=== PATIENT | male | born 1980 | race Caucasian/White ===

== ENCOUNTER 2019-10-18 22:23 | Emergency (ER) | payer OTHER, SELFPAY ==
[2019-10-18 22:31] VITALS: BP 171/104; PULSE 71; RESP 22; TEMP 36.5; O2SAT 100; BMI 28.2
--- NOTE | 2019-10-18 22:31 | ED_ITS ---
HPI - General Adult General Chief complaint: Abdominal Pain Stated complaint: states severe stomach pain Time Seen by Provider: 10/18/19 22:29 Source: patient Mode of arrival: Ambulatory Limitations: no limitations History of Present Illness HPI narrative: 39-year-old male here for evaluation of right upper quadrant abdominal pain. Patient states that was a fairly sudden onset a couple hours ago. Has had some nausea no vomiting. No change in bowel habits. No urinary symptoms. States that he was sitting on the couch eating cheese stick when the symptoms started. Has had some symptoms like this over the past several months however they have never been this bad. No fevers. Has not had it evaluated prior to this. Related Data Previous Rx's Medication Instructions Recorded hydrocodone-acetaminophen [[place]] 1 tab PO Q4-6H PRN #7 tab 10/19/19 ondansetron 4 mg PO Q6H PRN #10 tab 10/19/19 Review of Systems Constitutional Constitutional: Denies fever(s) Cardiovascular Cardiovascular: Denies chest pain and Denies dyspnea Respiratory Respiratory: Denies dyspnea Gastrointestinal Gastrointestinal: Reports abdominal pain, Denies change in stool character, Reports nausea and Denies vomiting Genitourinary Genitourinary: Denies dysuria Musculoskeletal Musculoskeletal: Denies myalgias and Denies arthralgias Integumentary/Breasts Skin/Breast: Denies lesions and Denies rash Neurologic Neurologic: Denies behavioral changes Psychiatric Psychiatric: Denies behavioral changes Hematologic/Lymphatic Hematologic/Lymphatic: Denies easy bleeding and Denies easy bruising Allergic/Immunologic Allergic/Immunologic: Denies urticaria Patient History Medical History Healthy adult (Acute) Social History Smoking Status: Never smoker Exam Initial Vital Signs Initial Vital Signs: Vital Signs Temperature 97.7 F 10/18/19 22:31 Pulse Rate 71 10/18/19 22:31 Respiratory Rate 22 10/18/19 22:31 Blood Pressure 171/104 H 10/18/19 22:31 Pulse Oximetry 100 10/18/19 22:31 Const General: cooperative and No comfortable (Uncomfortable) Limitations: mental status not altered HENMT Head: normal to inspection and normocephalic Resp Effort & Inspection: normal respiratory effort Auscultation: clear to auscultation bilaterally Cardio Rate: regular rate GI Inspection: non-distended Palpation: soft, No firm and tender (Right upper quadrant without rebound or guarding) Back/Spine/Pelvis Back: No CVA tenderness Skin Lesions: no lesions Rashes: no rashes Neuro General: alert and awake Cognition: normal cognition Speech: speech normal Extrem General: normal to inspection and capillary refill normal Psych Appearance: grossly normal and well kempt Course Orders Ordered: ED Orders 10/18/19 22:30 Complete Blood Count AUTO DIFF Stat Comprehensive Metabolic Panel Stat Lipase Stat 10/18/19 22:34 EKG-12 Lead Stat Discontinued Medications Hydrocodone Bitart/Acetaminophen (Vicodin 5/325 Prepack) 1 bottle MISC SEEINSTR ONE Stop: 10/19/19 00:03 Last Admin: 10/19/19 00:10 Dose: 1 bottle Documented by: AL Hydromorphone HCl (Dilaudid) 1 mg IV NOW ONE Stop: 10/18/19 23:20 Last Admin: 10/18/19 23:28 Dose: 1 mg Documented by: AL Ketorolac Tromethamine (Toradol) 30 mg IV NOW ONE Stop: 10/18/19 22:33 Last Admin: 10/18/19 22:51 Dose: 30 mg Documented by: AL Ondansetron HCl (Zofran Odt Prepack) 1 bottle MISC SEEINSTR ONE Stop: 10/19/19 00:03 Last Admin: 10/19/19 00:10 Dose: 1 bottle Documented by: AL Vital Signs Vital signs: Vital Signs - 8 hr 10/18/19 22:31 10/18/19 23:48 10/19/19 00:22 Temperature 97.7 F Pulse Rate 71 66 58 L Respiratory Rate 22 10 L 16 Blood Pressure 171/104 H 156/58 H Blood Pressure [Left Arm] 145/92 H Pulse Oximetry 100 97 97 Medical Decision Making Lab Data Lab results reviewed: Yes I reviewed the patient's lab results. Result diagrams: 10/18/19 22:30 10/18/19 22:30 Labs: Lab Results 10/18/19 10/18/19 Range/Units 22:30 22:30 WBC 9.9 (4.5-11.0) X10^3/uL RBC 5.33 (4.5-5.9) X10^6/uL Hgb 16.6 (13.5-17.5) g/dL Hct 47.6 (41-53) % MCV 89.4 (80-100) fL MCH 31.2 (26-34) PG MCHC 34.9 (30-36) % RDW 12.6 (11.6-14.8) % Plt Count 330 (150-400) X10^3/uL Neut % (Auto) 53.9 (50-75) % Lymph % (Auto) 31.5 (25-40) % [place] % (Auto) 10.8 (3-14) % Eos % (Auto) 2.7 (2-4) % Baso % (Auto) 1.1 (0-2) % Neut # (Auto) 5300 (9426-9627) /uL Lymph # (Auto) 3100 (8030-0323) /uL [place] # (Auto) 1100 H (0-900) /uL Eos # (Auto) 300 (0-450) /uL Baso # (Auto) 100 (0-100) /uL Sodium 137 (137-145) mmol/L Potassium 3.6 (3.4-5.1) mmol/L Chloride 100 (98-107) mmol/L Carbon Dioxide 23 (22-32) mmol/L BUN 20 (9-20) mg/dL Creatinine 1.00 (0.66-1.25) mg/dL Estimated GFR > 60.0 (>60) mL/min BUN/Creatinine Ratio 20.0 (6-22) Glucose 98 (70-100) mg/dL Calcium 9.9 (8.4-10.2) mg/dL Total Bilirubin 0.8 (0.2-1.3) mg/dL AST 34 (17-59) IU/L ALT 45 (<50) IU/L Alkaline Phosphatase 100 (38-126) U/L Total Protein 8.5 H (6.3-8.2) g/dL Albumin 5.0 (3.5-5.0) g/dL Globulin 3.5 (1.7-4.1) g/dL Albumin/Globulin Ratio 1.4 (1.0-2.8) Lipase 78 (23-300) U/L ECG Data Attestation: I personally reviewed and interpreted this ECG as follows: Prior ECG tracings: not available for review Interpretation: Sinus rhythm Ventricular rate is 63 Normal axis Normal QRS Normal QTC No ST T wave changes MDM Narrative Medical decision making narrative: Patient has a physical exam that is consistent with biliary colic. Is afebrile. Does not have a white count. Does not have an elevation in LFTs or lipase. Pain is controlled with medications. We did discuss this is most likely gallbladder pathology. Informed him that he should talk with his primary doctor on Sunday about obtaining a outpatient ultrasound. Patient was given return precautions and follow-up instructions. He expressed understanding and agreement plan. Discharge Plan Departure Patient Disposition: Home Clinical Impression: Biliary colic Abdominal pain Qualifiers: Abdominal location: right upper quadrant Qualified Code(s): R10.11 - Right upper quadrant pain Discharge Date/Time: 10/19/19 00:25 Instructions: Gallstones (Alternative Therapy) Activity Restrictions/Additional Instructions: I do have suspicion that your symptoms today were caused by your gallbladder. I recommend that on Sunday you contact your primary provider about scheduling a ultrasound as an outpatient. I recommend you eat a bland diet. Take the medications as needed as directed. Return to the emergency department for any new symptoms to include fevers, vomiting, pain that is not controlled with the medications her any other concerning symptoms Prescriptions: New hydrocodone-acetaminophen [Anderson] 5-325 mg tablet 1 tab PO Q4-6H PRN (Reason: pain) Qty: 7 RF: 0 ondansetron 4 mg tablet,disintegrating 4 mg PO Q6H PRN (Reason: nausea and vomiting) Qty: 10 RF: 0
[2019-10-18 22:48] LABS: Add Manual Diff / Slide Review NO; Basophils Absolute Auto 100 /uL (0-100); Basophils Percent Auto 1.1 % (0-2); Eosinophils Absolute Auto 300 /uL (0-450); Eosinophils Percent Auto 2.7 % (2-4); Hematocrit 47.6 % (41-53); Hemoglobin 16.6 g/dL (13.5-17.5); Lymphocytes Absolute Auto 3100 /uL (1100-4500); Lymphocytes Percent Auto 31.5 % (25-40); Mean Corpuscular HGB Conc 34.9 % (30-36); Mean Corpuscular Hemoglobin 31.2 PG (26-34); Mean Corpuscular Volume 89.4 fL (80-100); Monocytes Absolute Auto 1100 /uL (0-900); Monocytes Percent Auto 10.8 % (3-14); Neutrophils Absolute Auto 5300 /uL (1500-7000); Neutrophils Percent Auto 53.9 % (50-75); Platelet Count 330 X10^3/uL (150-400); Red Blood Cell Count 5.33 X10^6/uL (4.5-5.9); Red Cell Distribution Width 12.6 % (11.6-14.8); White Blood Cell Count 9.9 X10^3/uL (4.5-11.0)
[2019-10-18] MEDS: KETOROLAC 60 MG/2 ML VIAL 30 MG IV (22:51)
[2019-10-18 22:57] LABS: Alanine Aminotransferase 45 IU/L (<50); Albumin Globulin Ratio 1.4 (1.0-2.8); Alkaline Phosphatase 100 U/L (38-126); Aspartate Aminotransferase 34 IU/L (17-59); Bilirubin Total 0.8 mg/dL (0.2-1.3); Blood Urea Nitrogen 20 mg/dL (9-20); Calcium 9.9 mg/dL (8.4-10.2); Carbon Dioxide 23 mmol/L (22-32); Chloride 100 mmol/L (98-107); Estimated Glomerular Filt Rate > 60.0 mL/min (>60); Globulin 3.5 g/dL (1.7-4.1); Glucose 98 mg/dL (70-100); HEMOLYSIS 26 (0-50); Lipase 78 U/L (23-300); Potassium 3.6 mmol/L (3.4-5.1); Sodium 137 mmol/L (137-145); Total Protein 8.5 g/dL (6.3-8.2)
[2019-10-18] MEDS: HYDROMORPHONE 1 MG INJ IV (23:28)
[2019-10-18 23:48] VITALS: BP 145/92; PULSE 66; RESP 10; O2SAT 97
[2019-10-19] MEDS: ONDANSETRON 4 MG ODT PREPACK 1 BOTTLE MISC (00:10)
[2019-10-19] MEDS: HYDROCODONE/ACET 5/325 PREPACK 1 BOTTLE MISC (00:10)
[2019-10-19 00:22] VITALS: BP 156/58; PULSE 58; RESP 16; O2SAT 97
== END 2019-10-19 00:25 | disposition home or self-care (01) ==
PROVIDERS: Emergency Provider Emergency Medicine
DX: K80.50 Calculus of bile duct without cholangitis or cholecystitis without obstruction (principal); R10.11 Right upper quadrant pain
CPT/HCPCS: 36415; 80053; 83690; 85025; 93005; 96374; 96375; 99284; J1170; J1885

== ENCOUNTER 2019-10-19 16:20 | Observation (INO) | payer OTHER, SELFPAY ==
[2019-10-19] VITALS (15 sets, daily range): BP systolic 99–141; BP diastolic 61–91; PULSE 80–95; RESP 13–22; TEMP 36.2–39; O2SAT 94–100; BMI 28.2
--- NOTE | 2019-10-19 | PATH_ITS ---
[facility] Accession Number: [id number] . 01 Material submitted: . gallbladder - GALLBLADDER . 01 Clinical history: . STOMACH PAIN IS GETTING WORSE . 02 Diagnosis: Gallbladder, Cholecystectomy: Chronic active cholecystitis with cholelithiasis. No evidence of neoplasm. MRV 10/22/2019 1219 Local . 02 Electronically signed: . Demetrius Kent MD, PhD, Pathologist NPI- [id number] . 01 Gross description: . Received in formalin, labeled gallbladder, is an opened gallbladder (length-7.8 cm, diameter-3.5 cm) with gagnon-thomas smooth shiny serosa and a patent cystic duct. No lymph nodes are identified. The lumen contains brown solid soft material and one brown-green gritty calculus (1.8 x 1.2 x 0.8 cm) with a clear crystalline cut surface. The mucosa is brown, smooth and flat. The wall is up to 0.1 cm thick. No nodules, masses or lesions are identified. Section code: (A1) cystic duct resection margin and two serial sections from the body; (A2) two longitudinal sections from the fundus. ([id number]) /MRV 10/21/2019 1439 Local . 02 Pathologist provided ICD-10: K80.60, K81.2 . 02 CPT . 138376 Performed at: 01 [facility] [address], [place], [place] [address] MD Phillip Hooper MD Phone: [phone] Performed at: 02 [facility] [address] [place], [place] [id number] MD Kelsea Arias MD Phone: [phone]
--- NOTE | 2019-10-19 16:53 | DI.US.S_ITS ---
PROCEDURE: US ABDOMEN LIMITED INDICATIONS: RUQ PAIN TECHNIQUE: Real-time focused scanning was performed of the abdomen, with image documentation. COMPARISON: None. FINDINGS: The liver is normal in size. Echotexture of the liver is symmetric when compared to the right kidney. No focal liver lesions are identified. No intrahepatic biliary dilatation is evident. The common bile duct is measuring within the upper limits of normal for size at approximately 7 mm. The gallbladder is normal in size, but demonstrates gallbladder wall thickening (6 mm) with pericholecystic fluid. Gallstones are present within the gallbladder. The patient was tender over the gallbladder. The pancreas is unremarkable. The included portions of the right kidney are unremarkable without hydronephrosis. The abdominal aorta and inferior vena cava were not imaged. IMPRESSION: Cholelithiasis with findings suggestive of wall inflammation and dilatation of the common bile duct is suggestive of acute cholecystitis and clinical correlation is recommended. Dictated by: Abraham Burgess M.D. on 10/19/2019 at 16:41 Approved by: Abraham Burgess M.D. on 10/19/2019 at 16:44
[2019-10-19 16:59] LABS: Add Manual Diff / Slide Review NO; Basophils Absolute Auto 100 /uL (0-100); Basophils Percent Auto 0.6 % (0-2); Eosinophils Absolute Auto 100 /uL (0-450); Eosinophils Percent Auto 0.6 % (2-4); Hematocrit 51.2 % (41-53); Lymphocytes Absolute Auto 1200 /uL (1100-4500); Lymphocytes Percent Auto 7.4 % (25-40); Mean Corpuscular HGB Conc 35.1 % (30-36); Mean Corpuscular Hemoglobin 31.3 PG (26-34); Mean Corpuscular Volume 89.2 fL (80-100); Monocytes Absolute Auto 1200 /uL (0-900); Monocytes Percent Auto 7.3 % (3-14); Neutrophils Absolute Auto 13300 /uL (1500-7000); Neutrophils Percent Auto 84.1 % (50-75); Platelet Count 333 X10^3/uL (150-400); Red Blood Cell Count 5.74 X10^6/uL (4.5-5.9); Red Cell Distribution Width 13.1 % (11.6-14.8); White Blood Cell Count 15.8 X10^3/uL (4.5-11.0)
[2019-10-19] MEDS: ONDANSETRON 4 MG/2 ML INJ IV (17:06)
[2019-10-19] MEDS: SODIUM CHLORIDE 0.9% 1,000 ML 1000 ML IV (17:07)
[2019-10-19] MEDS: MORPHINE 4 MG/ML INJ IV ×2 (17:07→18:06)
[2019-10-19 17:08] LABS: Alanine Aminotransferase 44 IU/L (<50); Albumin Globulin Ratio 1.3 (1.0-2.8); Alkaline Phosphatase 87 U/L (38-126); Amylase 68 U/L (30-110); Aspartate Aminotransferase 31 IU/L (17-59); Bilirubin Total 1.3 mg/dL (0.2-1.3); Blood Urea Nitrogen 11 mg/dL (9-20); Carbon Dioxide 25 mmol/L (22-32); Chloride 99 mmol/L (98-107); Estimated Glomerular Filt Rate > 60.0 mL/min (>60); Glucose 117 mg/dL (70-100); HEMOLYSIS 27 (0-50); Lipase 39 U/L (23-300); Potassium 3.6 mmol/L (3.4-5.1); Sodium 136 mmol/L (137-145)
--- NOTE | 2019-10-19 17:50 | ED.ABDPAIN ---
HPI - Abdominal Pain <DONNA Jo - Last Filed: 10/19/19 19:53> General Chief Complaint: Abdominal Pain Stated Complaint: stomach pain is getting worse Time Seen by Provider: 10/19/19 16:53 Source: patient and family Mode of arrival: Ambulatory Limitations: no limitations History of Present Illness HPI narrative: Male nonsmoker who presents with a chief complaint of continued right upper quadrant pain. He states that he had sudden pain last night his right upper quadrant while eating a cheese stick. He notes that he has had symptoms like this for the past several months, they have never been this bad and has always self resolved. No dysuria urgency or frequency. Last bowel movement this morning. Complains of nausea, no vomiting. States that he has been able to keep down plain oatmeal today and had water. Last ate some vegetables and crackers at 1:00 p.m.. Last fluid intake at 3:00 p.m. he was evaluated this facility yesterday, had lab work done and elected to wait for imaging for an outpatient. He presents today because he continues to feel poorly and worse. He denies any fevers but complains of muscle aches, chills and rigors. Past surgical history includes appendectomy. Other history includes orthopedic injuries. No daily medications. Related Data Previous Rx's Medication Instructions Recorded hydrocodone-acetaminophen [[place]] 1 tab PO Q4-6H PRN #7 tab 10/19/19 ondansetron 4 mg PO Q6H PRN #10 tab 10/19/19 Allergies Allergy/AdvReac Type Severity Reaction Status Date / Time No Known Drug Allergies Allergy Verified 10/19/19 19:12 Review of Systems <DONNA Jo - Last Filed: 10/19/19 19:53> Review of Systems Narrative: GENERAL: See HPI HEENT: Denies sinus pain, ear pain, sore throat, difficulty swallowing, dizziness. RESPIRATORY: Denies dyspnea, cough, wheezing, hemoptysis, sputum. CARDIOVASCULAR: Denies chest pain, palpitations, orthopnea, edema, GASTROINTESTINAL: See HPI : Denies dysuria, frequency, incontinence, hematuria, urinary retention. MUSCULOSKELETAL: denies weakness, joint pain, or bony pain SKIN: Denies rash, skin lesions, or other NEUROLOGIC: Denies weakness, headache, numbness, change in speech, confusion, seizures, incoordination. PSYCHIATRIC: No concerning psychosocial issues. 12 point review of systems is negative except for those stated above Patient History <DONNA Jo - Last Filed: 10/19/19 19:53> Medical History Appendicitis (Acute) Healthy adult (Acute) Social History household members: spouse Smoking Status: Never smoker Smoking Status: Never smoker Substance Use Type: does not use Exam <DONNA Jo - Last Filed: 10/19/19 19:53> Narrative Exam Narrative: GENERAL: This is a well-nourished, well-developed patient, appears uncomfortable HEAD: Atraumatic. Normocephalic. No temporal or scalp tenderness. EYES: Pupils equal round and reactive. Extraocular motions intact. No scleral icterus. No injection or drainage. ENT: Nose without bleeding, purulent drainage or septal hematoma. Throat without erythema, tonsillar hypertrophy or exudate. Uvula midline. Airway patent. NECK: Trachea midline. No JVD or lymphadenopathy. Supple, nontender, no meningeal signs. CARDIOVASCULAR: Regular rate and rhythm without murmurs, gallops, or rubs. RESPIRATORY: Clear to auscultation. Breath sounds equal bilaterally. No wheezes, rales, or rhonchi. GASTROINTESTINAL: Abdomen soft, right upper quadrant tenderness to palpation with guarding, nondistended. Positive Gallagher sign. Active bowel sounds all 4 quadrants. EXTREMITIES: No clubbing, cyanosis, or edema. No joint tenderness, effusion, or edema noted. BACK: Nontender without deformity or crepitance. No flank tenderness. NEURO: AOx3. SKIN: No rash or erythema on visible skin Initial Vital Signs Initial Vital Signs: Vital Signs Temperature 98.7 F 10/19/19 16:30 Pulse Rate 81 10/19/19 16:30 Respiratory Rate 22 10/19/19 16:30 Blood Pressure 137/90 10/19/19 16:30 Pulse Oximetry 100 10/19/19 16:30 <Patrick Gonzalez DO - Last Filed: 10/19/19 20:08> Initial Vital Signs Initial Vital Signs: Vital Signs Temperature 98.7 F 10/19/19 16:30 Pulse Rate 81 10/19/19 16:30 Respiratory Rate 22 10/19/19 16:30 Blood Pressure 137/90 10/19/19 16:30 Pulse Oximetry 100 10/19/19 16:30 Scores <ROBBIN JoBC - Last Filed: 10/19/19 19:53> GCS Enmanuel coma scale eye opening: Spontaneous Enmanuel coma scale verbal response: Orientated Enmanuel coma scale motor response: Obey commands Enmanuel coma scale total score: 15 Course <DONNA Jo - Last Filed: 10/19/19 19:53> Orders Ordered: ED Orders 10/19/19 16:50 Amylase Stat Complete Blood Count AUTO DIFF Stat Comprehensive Metabolic Panel Stat Lipase Stat 10/19/19 16:53 US abdomen limited Stat Acetaminophen (Tylenol) 325 mg PO PACUNOW PRN PRN Reason: Pain, Mild (1-3) Fentanyl (Sublimaze) 0 mcg IV Q5M PRN PRN Reason: Pain, Moderate (4-6) Hydromorphone HCl (Dilaudid) 0 mg IV Q5MIN PRN PRN Reason: Pain, Mild (1-3) Lactated Ringer's (Lactated Ringers) 1,000 mls @ 42 mls/hr IV CONT GEORGINA Ketorolac Tromethamine (Toradol) 30 mg IV NOW PRN PRN Reason: Pain, Mild (1-3) Meperidine HCl (Demerol) 25 mg IV PACUNOW PRN PRN Reason: Moderate pain or shivering Metoclopramide HCl (Reglan) 10 mg IV NOW PRN PRN Reason: Nausea And Vomiting Ondansetron HCl (Zofran) 4 mg IV NOW PRN PRN Reason: Nausea And Vomiting Oxycodone HCl (Percolone) 5 mg PO PACUNOW PRN PRN Reason: Mild or moderate pain Oxycodone/Acetaminophen (Percocet 5/325) 1 tab PO PACUNOW PRN PRN Reason: Mild or Moderate Pain Discontinued Medications Sodium Chloride (Normal Saline 0.9%) 1,000 mls @ 1,000 mls/hr IV BOLUS ONE Stop: 10/19/19 17:52 Last Infusion: 10/19/19 19:13 Dose: 0 mls/hr Documented by: Admin: 10/19/19 17:07 Dose: 1,000 mls/hr Documented by: LANE Piperacillin/Tazobactam/Dextrose (Zosyn) 3.375 gm in 50 mls @ 100 mls/hr IV NOW ONE Stop: 10/19/19 19:27 Last Infusion: 10/19/19 19:40 Dose: 0 mls/hr Documented by: Admin: 10/19/19 19:17 Dose: 100 mls/hr Documented by: RICHA Morphine Sulfate (Morphine) 4 mg IV NOW ONE Stop: 10/19/19 16:54 Last Admin: 10/19/19 17:07 Dose: 4 mg Documented by: LANE Morphine Sulfate (Morphine) 4 mg IV NOW ONE Stop: 10/19/19 17:59 Last Admin: 10/19/19 18:06 Dose: 4 mg Documented by: MALLORY Ondansetron HCl (Zofran) 4 mg IV NOW ONE Stop: 10/19/19 16:54 Last Admin: 10/19/19 17:06 Dose: 4 mg Documented by: LANE Consultations Consultation #1: I spoke with Dr. Johnson regarding the patient given that his imaging and lab work is concerning for acute cholecystitis. Zosyn ordered as per surgery recommendations. Checked on patient his pain is well controlled at this point time. Patient and updated. Plan is to hold patient in emergency department for surgery evaluation. Vital Signs Vital signs: Vital Signs - 8 hr 10/19/19 16:30 10/19/19 19:11 Temperature 98.7 F Pulse Rate 81 82 Respiratory Rate 22 18 Blood Pressure 137/90 Blood Pressure [Left Arm] 138/80 Pulse Oximetry 100 98 <Patrick Gonzalez, - Last Filed: 10/19/19 20:08> Orders Ordered: ED Orders 10/19/19 16:50 Amylase Stat Complete Blood Count AUTO DIFF Stat Comprehensive Metabolic Panel Stat Lipase Stat 10/19/19 16:53 US abdomen limited Stat Acetaminophen (Tylenol) 325 mg PO PACUNOW PRN PRN Reason: Pain, Mild (1-3) Fentanyl (Sublimaze) 0 mcg IV Q5M PRN PRN Reason: Pain, Moderate (4-6) Hydromorphone HCl (Dilaudid) 0 mg IV Q5MIN PRN PRN Reason: Pain, Mild (1-3) Lactated Ringer's (Lactated Ringers) 1,000 mls @ 42 mls/hr IV CONT GEORGINA Ketorolac Tromethamine (Toradol) 30 mg IV NOW PRN PRN Reason: Pain, Mild (1-3) Meperidine HCl (Demerol) 25 mg IV PACUNOW PRN PRN Reason: Moderate pain or shivering Metoclopramide HCl (Reglan) 10 mg IV NOW PRN PRN Reason: Nausea And Vomiting Ondansetron HCl (Zofran) 4 mg IV NOW PRN PRN Reason: Nausea And Vomiting Oxycodone HCl (Percolone) 5 mg PO PACUNOW PRN PRN Reason: Mild or moderate pain Oxycodone/Acetaminophen (Percocet 5/325) 1 tab PO PACUNOW PRN PRN Reason: Mild or Moderate Pain Discontinued Medications Sodium Chloride (Normal Saline 0.9%) 1,000 mls @ 1,000 mls/hr IV BOLUS ONE Stop: 10/19/19 17:52 Last Infusion: 10/19/19 19:13 Dose: 0 mls/hr Documented by: Admin: 10/19/19 17:07 Dose: 1,000 mls/hr Documented by: LANE Piperacillin/Tazobactam/Dextrose (Zosyn) 3.375 gm in 50 mls @ 100 mls/hr IV NOW ONE Stop: 10/19/19 19:27 Last Infusion: 10/19/19 19:40 Dose: 0 mls/hr Documented by: Admin: 10/19/19 19:17 Dose: 100 mls/hr Documented by: RICHA Morphine Sulfate (Morphine) 4 mg IV NOW ONE Stop: 10/19/19 16:54 Last Admin: 10/19/19 17:07 Dose: 4 mg Documented by: LANE Morphine Sulfate (Morphine) 4 mg IV NOW ONE Stop: 10/19/19 17:59 Last Admin: 10/19/19 18:06 Dose: 4 mg Documented by: MALLORY Ondansetron HCl (Zofran) 4 mg IV NOW ONE Stop: 10/19/19 16:54 Last Admin: 10/19/19 17:06 Dose: 4 mg Documented by: LANE Vital Signs Vital signs: Vital Signs - 8 hr 10/19/19 16:30 10/19/19 19:11 Temperature 98.7 F Pulse Rate 81 82 Respiratory Rate 22 18 Blood Pressure 137/90 Blood Pressure [Left Arm] 138/80 Pulse Oximetry 100 98 MDM - Abdominal Pain <JASMYNE JoP- - Last Filed: 10/19/19 19:53> Differential Diagnosis Differential diagnosis: Likely abdominal pain, acute appendicitis, constipation and small bowel obstruction Lab Data Result diagrams: 10/19/19 16:50 10/19/19 16:50 Labs: Lab Results 10/19/19 10/19/19 Range/Units 16:50 16:50 WBC 15.8 H D (4.5-11.0) X10^3/uL RBC 5.74 (4.5-5.9) X10^6/uL Hgb 18.0 H (13.5-17.5) g/dL Hct 51.2 (41-53) % MCV 89.2 (80-100) fL MCH 31.3 (26-34) PG MCHC 35.1 (30-36) % RDW 13.1 (11.6-14.8) % Plt Count 333 (150-400) X10^3/uL Neut % (Auto) 84.1 H D (50-75) % Lymph % (Auto) 7.4 L D (25-40) % [place] % (Auto) 7.3 (3-14) % Eos % (Auto) 0.6 L (2-4) % Baso % (Auto) 0.6 (0-2) % Neut # (Auto) 38841 H (8610-4409) /uL Lymph # (Auto) 1200 (2302-6397) /uL [place] # (Auto) 1200 H (0-900) /uL Eos # (Auto) 100 (0-450) /uL Baso # (Auto) 100 (0-100) /uL Sodium 136 L (137-145) mmol/L Potassium 3.6 (3.4-5.1) mmol/L Chloride 99 (98-107) mmol/L Carbon Dioxide 25 (22-32) mmol/L BUN 11 (9-20) mg/dL Creatinine 1.00 (0.66-1.25) mg/dL Estimated GFR > 60.0 (>60) mL/min BUN/Creatinine Ratio 11.0 (6-22) Glucose 117 H (70-100) mg/dL Calcium 10.0 (8.4-10.2) mg/dL Total Bilirubin 1.3 (0.2-1.3) mg/dL AST 31 (17-59) IU/L ALT 44 (<50) IU/L Alkaline Phosphatase 87 (38-126) U/L Total Protein 9.0 H (6.3-8.2) g/dL Albumin 5.0 (3.5-5.0) g/dL Globulin 4.0 (1.7-4.1) g/dL Albumin/Globulin Ratio 1.3 (1.0-2.8) Amylase 68 (30-110) U/L Lipase 39 (23-300) U/L Imaging Data US - abdomen: Radiologist's Impression: [address] [place] [address] Ultrasound Report Signed Patient: Nadir Vázquez LMR#: [id number] : 1980Acct:[id number] Age/Sex: 39 / MDate of Service: 10/19/19 Loc: ED Accession Number: [id number] Procedure: US abdomen limited Ordering Provider: Saira Aguilar PROCEDURE: US ABDOMEN LIMITED INDICATIONS: RUQ PAIN TECHNIQUE: Real-time focused scanning was performed of the abdomen, with image documentation. COMPARISON: None. FINDINGS: The liver is normal in size. Echotexture of the liver is symmetric when compared to the right kidney. No focal liver lesions are identified. No intrahepatic biliary dilatation is evident. The common bile duct is measuring within the upper limits of normal for size at approximately 7 mm. The gallbladder is normal in size, but demonstrates gallbladder wall thickening (6 mm) with pericholecystic fluid. Gallstones are present within the gallbladder. The patient was tender over the gallbladder. The pancreas is unremarkable. The included portions of the right kidney are unremarkable without hydronephrosis. The abdominal aorta and inferior vena cava were not imaged. IMPRESSION: Cholelithiasis with findings suggestive of wall inflammation and dilatation of the common bile duct is suggestive of acute cholecystitis and clinical correlation is recommended. Dictated by: Abraham Burgess M.D. on 10/19/2019 at 16:41 Approved by: Abraham Burgess M.D. on 10/19/2019 at 16:44 MDM Narrative Medical decision making narrative: The patient is a 39-year-old male who presents to the emergency department with right upper quadrant pain. He is found to have cholecystitis on ultrasound, with associated leukocytosis with left shift. I spoke with the Dr Johnson regarding the patient, who brought him to the operating room at approximately 1930. Patient was given Zosyn prior and pain control was given through morphine, nausea control through Zofran in the emergency department. Patient and state understanding. <Patrick Gonzalez, DO - Last Filed: 10/19/19 20:08> Lab Data Labs: Lab Results 10/19/19 10/19/19 Range/Units 16:50 16:50 WBC 15.8 H D (4.5-11.0) X10^3/uL RBC 5.74 (4.5-5.9) X10^6/uL Hgb 18.0 H (13.5-17.5) g/dL Hct 51.2 (41-53) % MCV 89.2 (80-100) fL MCH 31.3 (26-34) PG MCHC 35.1 (30-36) % RDW 13.1 (11.6-14.8) % Plt Count 333 (150-400) X10^3/uL Neut % (Auto) 84.1 H D (50-75) % Lymph % (Auto) 7.4 L D (25-40) % [place] % (Auto) 7.3 (3-14) % Eos % (Auto) 0.6 L (2-4) % Baso % (Auto) 0.6 (0-2) % Neut # (Auto) 03757 H (2433-8266) /uL Lymph # (Auto) 1200 (2450-8414) /uL [place] # (Auto) 1200 H (0-900) /uL Eos # (Auto) 100 (0-450) /uL Baso # (Auto) 100 (0-100) /uL Sodium 136 L (137-145) mmol/L Potassium 3.6 (3.4-5.1) mmol/L Chloride 99 (98-107) mmol/L Carbon Dioxide 25 (22-32) mmol/L BUN 11 (9-20) mg/dL Creatinine 1.00 (0.66-1.25) mg/dL Estimated GFR > 60.0 (>60) mL/min BUN/Creatinine Ratio 11.0 (6-22) Glucose 117 H (70-100) mg/dL Calcium 10.0 (8.4-10.2) mg/dL Total Bilirubin 1.3 (0.2-1.3) mg/dL AST 31 (17-59) IU/L ALT 44 (<50) IU/L Alkaline Phosphatase 87 (38-126) U/L Total Protein 9.0 H (6.3-8.2) g/dL Albumin 5.0 (3.5-5.0) g/dL Globulin 4.0 (1.7-4.1) g/dL Albumin/Globulin Ratio 1.3 (1.0-2.8) Amylase 68 (30-110) U/L Lipase 39 (23-300) U/L Discharge Plan Departure Patient Disposition: Admitted As Inpatient Clinical Impression: Cholecystitis Discharge Date/Time: 10/19/19 19:27 Admit Date/Time: 10/19/19 19:26 Admit Provider: Callum Johnson <Patrick Gonzalez, - Last Filed: 10/19/19 20:08> Sign Out Provider Sign Out Attestation: Dr Gonzalez Co-Sign Statement: I was available for consultation during this patient's emergency department visit. This chart is signed by myself for administrative purposes only. I did not have direct contact with this patient during this visit. They were seen independently by the APC.
[2019-10-19] MEDS: PIPERACILLIN-TAZO 3.375 GM/50 ML FROZ.PIGGY IV ×2 (19:17→22:19)
--- NOTE | 2019-10-19 19:36 | PM.HP.1 ---
History of Present Illness History of Present Illness Date Patient Seen: 10/19/19 Time Patient Seen: 19:36 Chief complaint: stomach pain is getting worse Narrative: 39-year-old white male was had a 2 day history of right upper quadrant abdominal pain. He reported to our emergency department yesterday with the same symptoms right subcostal pain nausea had normal white count normal liver chemistries and was discharged with the idea of getting an outpatient ultrasound. Patient got septic today with shaking [place] [id number] and severe right subcostal pain. Ultrasound done in the ED today or this evening shows pericholecystic fluid gallstones thickening of the gallbladder wall. Patient is clinically septic and he will have an immediate laparoscopic cholecystectomy after receiving an intravenous dose of Zosyn. Patient History Medical History Appendicitis (Acute) Healthy adult (Acute) Family & Social History Tobacco & Substance use: Smoking Status Never smoker Substance Use Type does not use Meds Home Medications and Allergies Home Medications Medication Instructions Recorded Confirmed Type hydrocodone-acetaminophen [[place]] 1 tab PO Q4-6H PRN #7 tab 10/19/19 Rx ondansetron 4 mg PO Q6H PRN #10 tab 10/19/19 Rx Allergies Allergy/AdvReac Type Severity Reaction Status Date / Time No Known Drug Allergies Allergy Verified 10/19/19 19:12 Review of Systems Review of Systems ROS Unobtainable: All systems reviewed & are unremarkable except as noted in HPI and below Exam Vital Signs (past 8 hours): - 10/19/19 16:30 10/19/19 19:11 Temperature 98.7 F Pulse Rate 81 82 Respiratory Rate 22 18 Blood Pressure 137/90 Blood Pressure [Left Arm] 138/80 Pulse Oximetry 100 98 Oxygen Delivery Method Room Air Narrative Exam Narrative: Patient is in excruciating right subcostal pain has shaking chills. He is afebrile 987. Is as throat are unremarkable Lungs are clear with no rales or wheezes Heart regular rhythm no murmur Abdomen shows exquisite right subcostal tenderness with rebound tenderness. There is guarding. There is no mass palpable. Rectal is deferred at this time. Objective Labs Result Diagrams: 10/19/19 16:50 10/19/19 16:50 Labs: Laboratory Results - last 24 hr 10/19/19 10/19/19 16:50 16:50 WBC 15.8 H D RBC 5.74 Hgb 18.0 H Hct 51.2 MCV 89.2 MCH 31.3 MCHC 35.1 RDW 13.1 Plt Count 333 Neut % (Auto) 84.1 H D Lymph % (Auto) 7.4 L D [place] % (Auto) 7.3 Eos % (Auto) 0.6 L Baso % (Auto) 0.6 Neut # (Auto) 54056 H Lymph # (Auto) 1200 [place] # (Auto) 1200 H Eos # (Auto) 100 Baso # (Auto) 100 Sodium 136 L Potassium 3.6 Chloride 99 Carbon Dioxide 25 BUN 11 Creatinine 1.00 Estimated GFR > 60.0 BUN/Creatinine Ratio 11.0 Glucose 117 H Calcium 10.0 Total Bilirubin 1.3 AST 31 ALT 44 Alkaline Phosphatase 87 Total Protein 9.0 H Albumin 5.0 Globulin 4.0 Albumin/Globulin Ratio 1.3 Amylase 68 Lipase 39 Assessment & Plan Assessment & Plan narrative: Patient has clinical evidence of ascending cholangitis. LFTs and bilirubin are normal. He certainly clinically septic. He has received 1 dose of intravenous Zosyn and will be taken promptly to the operating room for urgent laparoscopic cholecystectomy. Patient understands that he may need open surgery. He and his have no unanswered questions.
[2019-10-19] MEDS: LACTATED RINGERS 1,000 ML 42 ML IV (19:45)
--- NOTE | 2019-10-19 19:53 | SUR.PREOP ---
Handoff report received from Asha RN in ED. Transported patient to [facility] for preop surgery arrived in department at 0730. at bedside. Consents signed. VSS. To OR at 0750
[2019-10-19] MEDS: ACETAMINOPHEN IV 1,000 MG/100 ML VIAL 400 MG IV (20:05)
--- NOTE | 2019-10-19 20:10 | SUR.OPER ---
Supine on padded OR bed, head on pillow, arms secured on padded arm boards at <90 degrees abduction, legs uncrossed, safety belt at thigh, tape over blanket over lower legs.
[2019-10-19] MEDS: BUPIVACAINE 0.5% W/ EPI (PF) 30 ML VIAL INJ (20:14)
--- NOTE | 2019-10-19 21:01 | PM.OP.1 ---
Operative Date/Time/Diagnoses Date of procedure: 10/19/19 Time of procedure: 21:01 Pre-op diagnosis: Acute cholecystitis with cholelithiasis and sepsis Post-op diagnosis: same Procedure & Clinicians Procedure: Laparoscopic cholecystectomy Same procedure as scheduled: Yes Indications: Acute cholecystitis cholelithiasis and systemic sepsis Surgeon: Callum Johnson Click Yes if Unassisted: Yes Anesthesia Type: General Operative Notes Findings: Severe acute cholecystitis with cholelithiasis Closure Type: primary Specimen(s): other (Gallbladder and stones) Estimated Blood Loss (mL): 50 Blood products transfused: none Procedure in detail: The patient was properly identified during surgical pause prepped and draped in a sterile fashion with exposure of the upper abdomen under general endotracheal anesthesia. 5 mm incision is made to the right of the umbilicus and using an optical port direct entry into the peritoneal cavity was achieved under direct vision and a pneumoperitoneum safely established. Three right subcostal ports were all placed under direct vision. Gallbladder was massively edematous tense and could not be grasped. Therefore using the cautery a burned a hole in the dome of the gallbladder and aspirated the contents. Then I could elevate the gallbladder by inserting 1 blade of a grasper inside the gallbladder and 1 outside to firmly elevate the gallbladder itself. Once this was done massive adhesions to the anterior gallbladder wall were taken down bluntly. This was done with minimal bleeding. I was then able to expose the cholecystoduodenal ligament. The cystic duct was clearly seen and closed with multiple clips dividing the duct and leaving several clips with the patient. There was no bile leak. Calot's node was identified was markedly enlarged probably 3 times normal size. Behind Calot's node was the cystic artery which was identified dissected and closed with multiple clips divided leaving several with the patient and there was no bleeding. Once this Was accomplished I could elevate the gallbladder and I dissected it away from the liver bed using the Bovie electric cautery for meticulous hemostasis. The gallbladder and its contents were removed. The operative site was irrigated with 2 L of sterile saline and aspirated dry. There was no bleeding and no bile leak. The trocars were removed under direct vision and there was no bleeding. The epigastric port which had to be enlarged a bit was closed with 0 Vicryl reapproximating the fascia there. Kathy were used to close all 4 port sites. Sterile dressings were applied. The procedure was very well tolerated. He remained hemodynamically stable. Complications: none Post-operative Condition: stable Disposition: PACU
--- NOTE | 2019-10-19 21:34 | SUR.PHASEI ---
Post op Phase 1 note: Patient arrived to PACU sedated but easily arousable by voice. Respirations regular and unlabored. VSS, O2 Sat WNL on RA. Dressings on abd CDI. No complaints of pain on arrival. Handoff report received from George Sanchez and Karley Brody RN. at bedside in PACU. VSS, telephone report called to Gauri Calixto. Stable for transfer to IP room 225. Pain leve 1/10 and tolerable. No nausea.
[2019-10-19] MEDS: SODIUM CHLORIDE 0.9% 1,000 ML 100 ML IV (22:19)
[2019-10-20 00:48] VITALS: BP 110/70; PULSE 70; RESP 16; TEMP 35.8; O2SAT 95
[2019-10-20] MEDS: KETOROLAC 30 MG/ML VIAL IV ×2 (02:57→09:10)
[2019-10-20] MEDS: PIPERACILLIN-TAZO 3.375 GM/50 ML FROZ.PIGGY IV ×2 (03:00→08:31)
[2019-10-20 04:45] VITALS: BP 121/76; PULSE 86; RESP 16; TEMP 36.3; O2SAT 95
[2019-10-20] MEDS: PANTOPRAZOLE 20 MG TABLET PO (05:56)
[2019-10-20 08:00] VITALS: BP 128/78; PULSE 93; RESP 18; TEMP 36.6; O2SAT 96
[2019-10-20] MEDS: SODIUM CHLORIDE 0.9% 1,000 ML 100 ML IV (08:31)
--- NOTE | 2019-10-20 09:17 | CM.DANOTE ---
DCP/Assessment: Reviewed chart. Patient is a 39yr old male admitted to [facility] with abdominal pain. Admitting provider is Dr. Johnson. No PCP identified. Primary payor is 1)[employer] Sara. Met with patient explained CM/SW role. Patient alert and oriented during interview. Patient reports that he resides with his spouse/Kay [place] Patient unclear if he will be discharging today. Patient remains on clear liquid diet after having lap [place] on 10-19-19. P: CM/SW team to continue to follow closely if d/c needs arise. Anticipate home when stable. LOVE Walker Discharge Planning/Care Management CM Discharge Assessment Start: 10/20/19 09:15 Freq: Status: Active Protocol: Document 10/20/19 09:15 KJS (Rec: 10/20/19 09:17 KJS [id number]) Discharge Planning Assessment Assigned Student Nurse LOVE Walker Contact Information Kay Vázquez (spouse) [phone] Advance Directives? No History Provided By Patient,Medical Record Prior Living Arrangements House Household Members spouse Type of transporation used prior to Drives own vehicle admit Independent with ADL's Yes Is patient alert and oriented? Yes Barriers to Discharge No Comment No identified at time of assessment Discharge Plan Home Transportation Arrangement Spouse to provide transport. Whiteboard Updated in Patient Room with Yes name and ext. # of Student Nurse Review Status In Process Next Review Type Continued Stay Review
--- NOTE | 2019-10-20 10:30 | PC.NURSE ---
Addendum entered by April Campbell R.N. 10/20/19 14:28: DC - paperwork reviewed w/pt, spouse, script provided, sl removed, belongings gathered and escorted via wc by receiving specialist to car. Addendum entered by April Campbell R.N. 10/20/19 11:46: PAIN - pt had been moving in bed and appears uncomfortable, states his abd pain has increased to 4-5 on scale 0/10, given 5/325mg po x 2 tabs with juice and cracker. Original Note: AM NOTE - pt is alert, viewing cell phone, states abd discomfort 2-3 on scale 0/10, declines narcotic or tylenol, states toradol has provided good relief, bt present, passing flatus, abd soft, no nausea, josh clear liq this am, telfa dsg x4 w/small spots shadow drainage, c, intact.
[2019-10-20] MEDS: OXYCODONE/ACETAMINOPHEN 5/325 TABLET 2 TAB PO (11:10)
[2019-10-20 12:21] VITALS: BP 96/58; PULSE 77; RESP 20; TEMP 36.8; O2SAT 94
--- NOTE | 2019-10-20 14:23 | PM.DS.1 ---
History of Present Illness History of Present Illness Chief complaint: stomach pain is getting worse Discharge Providers Provider Date of admission: 10/19/19 19:26 Discharge Date: 10/20/19 Discharge provider: Jamari Mckay MD Summary Hospital Course Discharge Diagnosis: Acute cholecystitis Hospital Course: Patient presented with acute cholecystitis. He underwent a laparoscopic cholecystectomy by Dr. Roa 10/19/2019. Acute cholecystitis was observed. The operation was unremarkable. His postoperative observation was uneventful. Status at Discharge Cognitive/behavioral status at discharge: oriented Overall status at discharge: patient is progressing back to baseline Time Spent with Patient Time spent: Greater than 30 minutes Exam Vital Signs (past 8 hours): - 10/20/19 08:00 10/20/19 12:21 Temperature 97.9 F 98.2 F Pulse Rate 93 H 77 Respiratory Rate 18 20 Blood Pressure 128/78 96/58 L Pulse Oximetry 96 94 Oxygen Delivery Method Room Air Oxygen Flow Rate 0 Narrative Exam Narrative: General adult male alert oriented no acute distress Chest nonlabored respirations Abdomen incisions clean dry intact. Appropriately tender to palpation. Objective Labs Result Diagrams: 10/19/19 16:50 10/19/19 16:50 Labs: Laboratory Results - last 24 hr 10/19/19 10/19/19 16:50 16:50 WBC 15.8 H D RBC 5.74 Hgb 18.0 H Hct 51.2 MCV 89.2 MCH 31.3 MCHC 35.1 RDW 13.1 Plt Count 333 Neut % (Auto) 84.1 H D Lymph % (Auto) 7.4 L D [place] % (Auto) 7.3 Eos % (Auto) 0.6 L Baso % (Auto) 0.6 Neut # (Auto) 14745 H Lymph # (Auto) 1200 [place] # (Auto) 1200 H Eos # (Auto) 100 Baso # (Auto) 100 Sodium 136 L Potassium 3.6 Chloride 99 Carbon Dioxide 25 BUN 11 Creatinine 1.00 Estimated GFR > 60.0 BUN/Creatinine Ratio 11.0 Glucose 117 H Calcium 10.0 Total Bilirubin 1.3 AST 31 ALT 44 Alkaline Phosphatase 87 Total Protein 9.0 H Albumin 5.0 Globulin 4.0 Albumin/Globulin Ratio 1.3 Amylase 68 Lipase 39 Discharge Plan Discharge Plan Patient Disposition: Home Discharge orders & Medications Prescriptions: New tramadol 50 mg tablet 50 mg PO Q6H PRN (Reason: pain) Qty: 30 RF: 0 Continued hydrocodone-acetaminophen [[place]] 5-325 mg tablet 1 tab PO Q4-6H PRN (Reason: pain) Qty: 7 RF: 0 ondansetron 4 mg tablet,disintegrating 4 mg PO Q6H PRN (Reason: nausea and vomiting) Qty: 10 RF: 0 Follow up/Referrals: Jamari Mckay MD [Physician] - (PLEASE CALL TO SCHEDULE A FOLLOW UP APPOINTMENT TO BE SEEN NEXT WEEK.) Diet/Activity/Treatments Diet: Low-fat Activity: No lifting >20 lbs x 4 weeks. Walking only for exercise for [address] while taking narcotics. Skin/Wound/Dressing Care Report to your healthcare provider any signs of infection, such as:: chills, fever, increased pain, unusual drainage and unusual redness Visit Report/Discharge Packet Instructions: DI for Cholecystectomy, DI for Laparoscopy, DI for Prescription Opioid Use, [facility]: Wound Care Visit Report Forms: Patient Portal/API, Stroke Signs & Symptoms Quality VTE Deep Vein Thrombosis/Pulmonary Embolism Present on Admission: Yes
--- NOTE | 2019-10-28 11:36 | PC.NURSE ---
Late entry: LR stop time 10/19/19 [id number]
== END 2019-10-20 14:00 | disposition home or self-care (01) ==
LOC: ED 16:53 → AC 19:27
PROVIDERS: Admitting Provider Surgery; Emergency Provider Nurse Practitioner Family; Visit Provider Surgery
PROC: 0FT44ZZ Resection of Gallbladder, Percutaneous Endoscopic Approach (ICD-10-PCS; CPT 47562; principal; 2019-10-19 19:10)
DX: R10.11 Right upper quadrant pain (principal); K80.00 Calculus of gallbladder with acute cholecystitis without obstruction
CPT/HCPCS: 47562; 36415; 76705; 80053; 82150; 83690; 85025; 94762; 96361; 96365; 96366; 96375; 96376; 99219; 99284; G0378; J0131; J0330; J1100; J1885; J2270; J2405; J2543; J2704; J2765; J3010

== ENCOUNTER 2019-12-03 09:04 | Emergency (ER) | payer OTHER, SELFPAY ==
[2019-10-19 22:01] VITALS: BMI 28.2
[2019-12-03 09:20] VITALS: BP 123/78; PULSE 117; RESP 16; TEMP 38.2; O2SAT 97; BMI 28.2
[2019-12-03 10:14] LABS: Influenza A - CEPHEID Flu A NEGATIVE (NEGATIVE); Influenza B - CEPHEID Flu B NEGATIVE (NEGATIVE)
--- NOTE | 2019-12-03 10:52 | DI.RAD.S_ITS ---
PROCEDURE: XR CHEST 2V INDICATIONS: bronchitis, fevers TECHNIQUE: 2 views of the chest were acquired. COMPARISON: None. FINDINGS: Surgical changes and devices: None. Lungs and pleura: Lungs are abnormal with lower lobe alveolar opacification to the degree that mild or early pneumonia appears present, also seen on the lateral view. No pleural effusions or pneumothorax. Mediastinum: Mediastinal contours are normal. Heart size is normal. Bones and chest wall: No suspicious bony abnormalities. Soft tissues appear unremarkable. IMPRESSION: Mild bibasilar pneumonia best seen on the lateral view. Dictated by: Abram Medina M.D. on 12/03/2019 at 11:32 Approved by: Abram Medina M.D. on 12/03/2019 at 11:32
--- NOTE | 2019-12-03 10:54 | PC.NURSE ---
Pt having upper abd/lower chest pain. Dr Coffman aware,ordered tylenol PO
[2019-12-03] MEDS: ACETAMINOPHEN 325 MG TABLET 650 MG PO (10:57)
--- NOTE | 2019-12-03 11:10 | ED_ITS ---
HPI - Fever General Chief Complaint: Upper Respiratory Symptoms Stated Complaint: bronchitis/spiked fever last night Time Seen by Provider: 12/03/19 10:52 Source: patient Mode of arrival: Wheelchair Limitations: no limitations History of Present Illness HPI Narrative: This is a 39-year-old male comes emergency department with complaint of fever and cough. Patient states he has had symptoms for about 10 days. He was seen at urgent care and given Mucinex and has not had any improvement and has been feeling worse. He has had a cough he states productive kind of greenish yellow. He has felt short of breath little bit of chest pain. Patient states he has been feeling a little bit dry. He has not any nausea or vomiting. He had some intermittent diarrhea. He did have a cholecystectomy 6 weeks ago. He states his incisions seem to be healing well. He has had occasional mild pain but no increase in abdominal pain. The cough he states started about 4 and half weeks ago and has just been worsening. Patient denies other medical issues. States he has also had his appendix removed. Denies any frequency, dysuria or urgency. Patient denies any allergies to medications, no tobacco, alcohol or illicit Related Data Previous Rx's Medication Instructions Recorded hydrocodone-acetaminophen [[place]] 1 tab PO Q4-6H PRN #7 tab 10/19/19 ondansetron 4 mg PO Q6H PRN #10 tab 10/19/19 tramadol 50 mg PO Q6H PRN #30 tab 10/20/19 amoxicillin-pot clavulanate 1 tab PO Q12H #20 tab 12/03/19 [Augmentin] Allergies Allergy/AdvReac Type Severity Reaction Status Date / Time No Known Drug Allergies Allergy Verified 12/03/19 09:26 Review of Systems Review of Systems ROS Unobtainable: All systems reviewed & are unremarkable except as noted in HPI and below Patient History Medical History (Updated 12/03/19 @ 11:29 by Saira Coffman DO) Appendicitis (Acute) Healthy adult (Acute) Surgical History (Updated 12/03/19 @ 11:25 by Saira Coffman DO) Hx of appendectomy (Acute) Hx of cholecystectomy (Acute) Social History household members: spouse Smoking Status: Never smoker alcohol intake: never Smoking Status: Never smoker alcohol intake frequency: holidays/special occasions only Substance Use Type: does not use Exam Narrative Exam Narrative: GEN: well nourished, well appearing male, alert and oriented x 3, patient appears to be in mild distress. HEENT: Atraumatic, pupils are equal round reactive to light, extraocular movements are intact, nares mild clear, TMs are clear with no fluid, there is no conjunctival pallor. Throat is clear without any exudates, erythema, tonsillar enlargement or uvular deviation HEART: Tachycardia with regular rate and rhythm without murmur, clicks, rubs. LUNGS:Lungs course bilateral, no wheezes, rales, crackles, chest moves symmetrically,, no tachypnea, no accessory muscle use. Patient has dry cough on exam particularly with deep inhalation. ABD:bowel sounds normal, soft, non-tender, no guarding, rebound, rigidity, no masses noted, no hepatosplenomegaly :No CVA tenderness MSCL: Non-tender, no muscle atrophy, muscles strength 5/5 upper and lower extremities, full range of motion, normal gait NEURO:CN 2-12 intact, sensation normal. SKIN: No rash or erythema. Initial Vital Signs Initial Vital Signs: Vital Signs Temperature 100.8 F H 12/03/19 09:20 Pulse Rate 117 H 12/03/19 09:20 Respiratory Rate 16 12/03/19 09:20 Blood Pressure 123/78 12/03/19 09:20 Pulse Oximetry 97 12/03/19 09:20 Course Orders Ordered: ED Orders 12/03/19 10:52 XR chest 2V Stat Discontinued Medications Acetaminophen (Tylenol) 650 mg PO NOW ONE Stop: 12/03/19 10:54 Last Admin: 12/03/19 10:57 Dose: 650 mg Documented by: JO ANN Ibuprofen (Advil) 800 mg PO NOW ONE Stop: 12/03/19 11:37 Last Admin: 12/03/19 11:43 Dose: 800 mg Documented by: JO ANN Vital Signs Vital signs: Vital Signs - 8 hr 12/03/19 11:35 12/03/19 11:38 12/03/19 11:43 Temperature 100.9 F H 100.9 F H 100.9 F H Pulse Rate 105 H Blood Pressure Blood Pressure [Left Arm] 121/76 Pulse Oximetry 93 12/03/19 11:55 Temperature 98.8 F Pulse Rate 105 H Blood Pressure 122/72 Blood Pressure [Left Arm] Pulse Oximetry 93 MDM - Fever Lab Data Attestation: I reviewed the patient's lab results. Labs: Lab Results 12/03/19 Range/Units 09:20 Influenza A (RT-PCR) Flu a negative (NEGATIVE) Influenza B (RT-PCR) Flu b negative (NEGATIVE) Point of Care Testing Rapid Strep A Negative Imaging Data Chest x-ray: Radiologist's Impression: [address] [address] XRay Report Signed Patient: Nadir Vázquez LMR#: [id number] : 1980Acct:[id number] Age/Sex: 39 / MDate of Service: 12/03/19 Loc: ED Accession Number: [id number] Procedure: XR chest 2V Ordering Provider: Saira Coffman D.O. PROCEDURE: XR CHEST 2V INDICATIONS: bronchitis, fevers TECHNIQUE: 2 views of the chest were acquired. COMPARISON: None. FINDINGS: Surgical changes and devices: None. Lungs and pleura: Lungs are abnormal with lower lobe alveolar opacification to the degree that mild or early pneumonia appears present, also seen on the lateral view. No pleural effusions or pneumothorax. Mediastinum: Mediastinal contours are normal. Heart size is normal. Bones and chest wall: No suspicious bony abnormalities. Soft tissues appear unremarkable. IMPRESSION: Mild bibasilar pneumonia best seen on the lateral view. Dictated by: Abram Medina M.D. on 12/03/2019 at 11:32 Approved by: Abram Medina M.D. on 12/03/2019 at 11:32 [facility] Narrative Medical decision making narrative: Patient's heart rate elevated he does have a fever in the department. After Tylenol his vitals show improvement heart rate although elevated. Normal blood pressure. Patient's was flu swab which is negative nursing also ordered point of care strep. Chest x-ray shows pneumonia. Patient started on Augmentin. Patient did have gallbladder surgery about 6 weeks ago. Return precautions were discussed patient's heart rate improved still slightly elevated 105 but fever has resolved. Patient feels comfortable with plan Discharge Plan Departure Patient Disposition: Home Clinical Impression: Pneumonia Qualifiers: Pneumonia type: due to unspecified organism Discharge Date/Time: 12/03/19 11:56 Instructions: DI for Pneumonia -- Adult Activity Restrictions/Additional Instructions: Follow-up with primary care in the next week if symptoms are not improving. Take antibiotics until completely gone. Continue Tylenol and/or ibuprofen as needed for fevers. Return to the ER for new or worsening symptoms, worsening shortness of breath, lightheadedness or passing out, persistent vomiting, coughing up blood, no abdominal pain, flank pain, black or bloody stools or other new or concerning symptoms. Prescriptions: New amoxicillin-pot clavulanate [[place]] 875-125 mg tablet 1 tab PO Q12H Qty: 20 RF: 0 No Action hydrocodone-acetaminophen [[place]] 5-325 mg tablet 1 tab PO Q4-6H PRN (Reason: pain) Qty: 7 RF: 0 ondansetron 4 mg tablet,disintegrating 4 mg PO Q6H PRN (Reason: nausea and vomiting) Qty: 10 RF: 0 tramadol 50 mg tablet 50 mg PO Q6H PRN (Reason: pain) Qty: 30 RF: 0 Referrals: Be Reynolds MD [Primary Care Provider] -
[2019-12-03 11:35] VITALS: BP 121/76; PULSE 105; TEMP 38.3; O2SAT 93
[2019-12-03 11:38] VITALS: TEMP 38.3
[2019-12-03 11:43] VITALS: TEMP 38.3
[2019-12-03] MEDS: IBUPROFEN 400 MG TABLET 800 MG PO (11:43)
[2019-12-03 11:55] VITALS: BP 122/72; PULSE 105; TEMP 37.1; O2SAT 93
== END 2019-12-03 11:56 | disposition home or self-care (01) ==
PROVIDERS: Emergency Provider Emergency Medicine; PCP Family Medicine
DX: J18.9 Pneumonia, unspecified organism (principal)
CPT/HCPCS: 71046; 87502; 87880; 93005; 99284; 99285

== ENCOUNTER → 2021-02-27 09:42 | Outpatient (CLI) | payer OTHER, SELFPAY ==
[2019-10-19 22:01] VITALS: BMI 28.2
[2021-02-27 10:12] LABS: COVID19 -Nasal RAPID Negative (Negative)
== END ==
PROVIDERS: PCP Family Medicine; Visit Provider Physician Assistant
DX: Z20.822 Contact with and (suspected) exposure to COVID-19 (principal); J02.9 Acute pharyngitis, unspecified
CPT/HCPCS: 87070; 87077; 87147; 87635

== ENCOUNTER → 2024-10-20 11:58 | Outpatient (CLI) | payer OTHER, SELFPAY ==
[2019-10-19 22:01] VITALS: BMI 28.2
[2024-10-20 13:38] LABS: COVID-19 CEPHEID 4-PLEX PCR Negative (Negative); Influenza A - CEPHEID Flu A NEGATIVE (NEGATIVE); Influenza B - CEPHEID Flu B NEGATIVE (NEGATIVE); Respiratory Syncytial Virus Negative (Negative)
== END ==
PROVIDERS: PCP Family Medicine; Visit Provider Registered Nurse
DX: J02.9 Acute pharyngitis, unspecified (principal); R05.1 Acute cough
CPT/HCPCS: 0241U; 87070